=== PATIENT | female | born 1985 | race Caucasian/White ===

== ENCOUNTER 2022-03-24 11:14 | Emergency (ER) | payer OTHER, SELFPAY ==
[2022-03-24 11:24] VITALS: BP 117/83; PULSE 58; RESP 16; TEMP 37.1; O2SAT 100
--- NOTE | 2022-03-24 12:08 | ED.EAR ---
HPI - Ear Problem General Chief complaint: Ear Stated complaint: right ear clogged Time Seen by Provider: 03/24/22 11:17 Source: patient Mode of arrival: ambulatory Limitations: no limitations History of Present Illness HPI Narrative: 36-year-old female presents to urgent care with complaints of right ear discomfort and clogged sensation for the past 2 days. Patient reports that the symptoms started after she went down a large water slide [place]. Patient reports that she has not noticed bloody drainage but did notice clear drainage yesterday but none today. Patient denies decreased hearing but reports that she feels that there is a clogged sensation to her right ear. Patient denies fever, bodies, chills, nausea, vomiting or diarrhea. Patient denies history of frequent ear infections. MD Complaint: ear pain Location: right ear Duration: constant Severity: mild Discharge from ear: Reports yes - clear Treatment prior to arrival: none Related Data Allergies Allergy/AdvReac Type Severity Reaction Status Date / Time codeine Allergy Mild NAUSEA AND Unverified 03/24/22 12:00 VOMITING Review of Systems Constitutional: Constitutional: Denies fatigue, Denies fever(s) and Denies weakness ENT: Denies vertigo Comments: Right ear pain Cardiovascular: Cardiovascular: Denies chest pain Respiratory: Respiratory: Denies cough, Denies dyspnea and Denies wheezing Gastrointestinal: Gastrointestinal: Denies diarrhea, Denies nausea and Denies vomiting Musculoskeletal: Musculoskeletal: Denies joint swelling Integumentary/Breasts: Skin/Breast: Denies rash PMFSH Comments At time of signature, I agree with nursing past medical, surgical, social and family history. There is no relevant family history pertinent to the presenting complaint. Exam Const: General: healthy appearing Nutritional Appearance: well nourished Orientation/consciousness: patient oriented x3 Limitations: no limitations HENMT: Head: normal to inspection Ears: TM abnormal dull on the right and other (Moderate erythema noted to right TM with questionable perforation noted to 6:00 region of right TM ) General nose exam: Normal external nose present Mouth: Yes Normal oral and palatal mucosa present Teeth and gingiva: dentition normal Throat: posterior oropharynx normal and uvula midline Eyes: Conjunctivae: conjunctivae normal Neck: Neck: normal visual inspection Resp: Effort & Inspection: normal respiratory effort and not labored Auscultation: clear to auscultation bilaterally, no crackles, no rales, no rhonchi and no wheezes Cardio: Rate: regular rate Rhythm: regular rhythm Heart sounds: Murmur heart sound present Skin: General skin exam: normal color Rashes: no rashes Wounds: no wounds Neuro: General: patient oriented x3 Cranial nerves: Yes Nystagmus not present Speech: normal speech Gait exam (Neuro): Normal gait present Psych: Mental Status: mental status grossly normal Affect: normal affect Attitude: cooperative Course Course Level of Care: Express Care Visit Vital Signs Vital signs: Vital Signs Temperature 37.1 C 03/24/22 11:24 Pulse Rate 58 L 03/24/22 11:24 Respiratory Rate 16 03/24/22 11:24 Blood Pressure 117/83 03/24/22 11:24 Pulse Oximetry 100 03/24/22 11:24 Temperature 37.1 C 03/24/22 11:24 Pulse Rate 58 L 03/24/22 11:24 Respiratory Rate 16 03/24/22 11:24 Blood Pressure 117/83 03/24/22 11:24 Pulse Oximetry 100 03/24/22 11:24 Medical Decision Making MDM Narrative Medical decision making narrative: Due to questionable perforation, patient understands importance of following up with ENT soon as possible. Patient agrees to call ENT tomorrow for an appointment. ENT -- Dr Arreloa's phone number provided for patient as there is no ENT on-call today. Patient agrees to keep ear clean and dry. Patient agrees to alternate Motrin Tylenol as needed. Differential Diagnosis Differential Diag
== END 2022-03-24 12:15 | disposition home or self-care (01) ==
PROVIDERS: Emergency Provider Nurse Practitioner Family; PCP Physician Assistant
DX: H66.91 Otitis media, unspecified, right ear (principal); Z86.16 Personal history of COVID-19
CPT/HCPCS: 99213; G0463

== ENCOUNTER 2025-07-05 09:40 | Outpatient (CLI) | payer BC, SELFPAY ==
--- NOTE | ~2025-07-05 | MM_ITS ---
EXAMINATION: MM screening ankit BI w herminia HISTORY: Screening TECHNIQUE: Craniocaudal and mediolateral oblique 3-D tomosynthesis images were obtained and synthetic 2-D images were generated. CAD analysis was submitted and interpreted. COMPARISON: Baseline BREAST PARENCHYMAL COMPOSITION: Dense: The breasts are heterogeneously dense, which may obscure small masses. FINDINGS: There is no evidence of suspicious mass, calcification, or architectural distortion to suggest malignancy in either breast. IMPRESSION: 1. No mammographic evidence of malignancy. 2. Recommend routine screening mammography in one year. BI-RADS Category 1: Negative Reviewed, dictated and finalized at location A. NARY ARTIST
--- OUTSIDE RECORDS SUMMARY | 2025-07-05 10:56 | XMS_ITS | Clinical Summary ---
Author Organization [facility] Address [address] [address] Care Team Providers Care Life Teacher Name Role Phone Unavailable Primary Care Provider Unavailabl e Source Comments [facility],non-owned Affiliates and Associated Physician Practices is amultiple site organization consisting of ambulatory clinics and hospital sitesin [place], [place], [place] and [place]. This disclosure is being madepursuant to the Care Everywhere program and may not contain all information available regarding this patient. Last updated 18.[facility] Allergies No known active allergies Medications * Be aware that medications may not be up to date on this document. Alwaysverify current medications with the patient. No known medications Immunizations Immunization Administration Dates Next Due INFLUENZA VACCINE, QUADR. (F LUZONE; FLULAVAL; FLUARIX; AFLURIA QUADRIVALENT; 6MO+), 0.5 ML (IIV4) 05/06/2018 Social History Tobacco Use Types Packs/Day Years Used Date Smoking Tobacco: Never Smokeless Tobacco: Never Comments No Sex and Gender Information Value Date Recorded Sex Assigned at Not on file Legal Sex Female 10:26 AM CDT Gender Identity Not on file Sexual Orientation Not on file Last Filed Vital Signs Vital Sign Reading Time Taken Comments Blood Pressure 110/76 11/24/2017 12:01 PM CDT Pulse 60 11/24/2017 12:01 PM CDT Temperature 36.3 C (97.4 F) 11/24/2017 12:01 PM CDT Respiratory Rate 16 11/24/2017 12:01 PM CDT Oxygen Saturation 99% 11/24/2017 12:01 PM CDT Inhaled Oxygen Concentration - - Weight 64.4 kg (142 lb) 11/24/2017 12:01 PM CDT Height - - Body Mass Index - - Plan of Treatment Health Maintenance Due Date Last Done Comments HIV SCREENING 2000 HEPATITIS C SCREENING 06/29/2003 DTAP/TDAP/TD VACCINES (1 - Tdap) 2004 HEPATITIS B VACCINE (1 of 3 - 19+ 3-dose series) 2004 HPV VACCINE (1 - 3-dose SCDM series) 2012 DEPRESSION SCREENING 07/20/2024 COVID-19 VACCINE (1 - 2024-2 6 season) 2025 INFLUENZA VACCINE (#1) 2025 05/06/2018 ZOSTER VACCINE (1 of 2) 2035 HIB VACCINE Aged Out No longer eligi ble based on patient's age to complete this topic MENINGOCOCCAL (Group B) VACC INE SHARED DECISION-MAKING Aged Out No longer eligibl e based on patient's age to complete this topic MENINGOCOCCAL GROUPS A/C/Y/W VACCINE Aged Out No longer eligible b ased on patient's age to complete this topic PNEUMOCOCCAL VACCINE Aged Out No long er eligible based on patient's age to complete this topic Insurance [id number] [place] [id number] [facility] [place] Address: [facility] [address] [place] [address] Advance Directives Documents on File Type Date Recorded 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
--- OUTSIDE RECORDS SUMMARY | 2025-07-05 10:56 | XMS_ITS | Clinical Summary ---
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 (spontaneous vaginal delivery) 02/17/2017 08/11/14 08/10/2014 Routine general medical exam ination at a health care facility 03/10/2012 Resolved Problems Problem Noted Date Diagnosed Date Resolved Date Normal labor 02/17/2017 02/17/2017 Immunizations Immunization Administration Dates Next Due (ADACEL/BOOSTRIX)(10 YR UP) TDAP VACCINE, 0.5ML, IM 06/02/2014 Influenza Seasonal Unspecified Formulation IM Family History Medical History Relation Name Comments Healthy Father Healthy Mother Relation Name Status Comments Father Mother Social History Tobacco Use Types Packs/Day Years Used Date Smoking Tobacco: Never Smokeless Tobacco: Never Alcohol Use Standard Drinks/Week Comments Yes 0 (1 standard drink = 0.6 oz pur e alcohol) occasionally Comments No Sex and Gender Information Value Date Recorded Sex Assigned at Not on file Legal Sex Female 6:06 AM REHAB ASSISTANT Gender Identity Not on file Sexual Orientation Not on file Occupation Industry Job Start Date Job End Date Not on file Not on file Not on file Not on file Not on file Not on file Not on file Not on file Last Filed Vital Signs Vital Sign Reading Time Taken Comments Blood Pressure 114/78 09/06/2019 12:08 PM REHAB ASSISTANT Pulse 54 04/26/2019 8:28 AM CDT Temperature 36.4 C (97.6 F) 04/26/2019 8:28 AM CDT Respiratory Rate 16 04/26/2019 8:28 AM CDT Oxygen Saturation 100% 04/26/2019 8:28 AM CDT Inhaled Oxygen Concentration - - Weight 69.2 kg (152 lb 9.6 oz) 09/06/2019 12:08 PM REHAB ASSISTANT Height 161.9 cm (5' 3.75) 09/06/2019 12:[address] Body Mass Index 26.4 09/06/2019 12:08 PM REHAB ASSISTANT Plan of Treatment Health Maintenance Due Date Last Done Comments HEPATITIS B VACCINES (1 of 3 - 19+ 3-dose series) 2004 CERVICAL CANCER SCREENING 09/06/2020 PAP SMEAR 09/06/2020 09/06/2019, 09/18, 09/17/2012, Additional history exists HPV/Cotest (21-29) 09/06/2024 09/06/2019, 0 09/17/2012, 09/19/2011 HPV/Cotest (30-65) 09/06/2024 09/06/2019, 0 09/17/2012, 09/19/2011 INFLUENZA VACCINE (#1) 2025 8, 03/31/2017, 04/03/2014 BREAST CANCER SCREENING 2025 DTAP/TDAP/TD VACCINES (4 - T d or Tdap) 12/22/2026 12/22/2016, 06/30/2014, 06/02/2014 HPV VACCINES (No Doses Required) Completed Procedures Procedure Name Priority Date/Time Associated Diagnosis Comments CERV/VAG CYTO AGE BASED SCREEN PAP Routine 09/06/2019 12:31 PM REHAB ASSISTANT Well female exam with routine gynecological exam from Last 3 Months or Most Recently Relevant to Health Maintenance Results * CERV/VAG CYTO AGE BASED SCREEN PAP (09/06/2019 12:31 PM REHAB ASSISTANT) COMMENT (PAP): SEE COMMENT 0 7:07 AM REHAB ASSISTANT [facility] Comment: This order for age-based cervical cancer and STI screening follows ACOG guidelines(PB 168, 140, [id number]). See individual assays for performing site location. CLINICAL INFORMATION Information not provided 09/12/2019 7:07 AM REHAB ASSISTANT [facility] LAST MENSTRUAL PERIOD INFORMATION NOT PROVIDED 09/12/2019 7:07 AM REHAB ASSISTANT [facility] PREV PAP: INFORMATION NOT PROVIDED 09/12/2019 7:07 AM REHAB ASSISTANT [facility] PREV BX: INFORMATION NOT PROVIDED 09/12/2019 7:07 AM REHAB ASSISTANT [facility] SOURCE Endocervix 09/12/2019 7:07 AM REHAB ASSISTANT [facility] ADEQUACY: SEE COMMENT 09/12/2019 7:07 AM REHAB ASSISTANT [facility] Comment: Satisfactory for evaluation. Endocervical/transformation zone component present. Age and/or menstrual status not provided PAP INTERP Negative for intraepithelial lesion or malignancy. 09/12/2019 7:07 AM REHAB ASSISTANT [facility] COMMENT This Pap test has been evaluated with computer assisted technology. 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 [place] [address] EXPLANATORY NOTE SEE COMMENT 020 7:07 AM REHAB ASSISTANT [facility] Comment: EXPLANATORY NOTE: The Pap is a screening test for cervical cancer. It is not a diagnostic test and is subject to false negative and false positive results. It is most reliable when a satisfactory sample, regularly obtained, is submitted with relevant clinical findings and history, and when the Pap result is evaluated along with historic and current clinical information. HPV E6/E7 Not Detected Not Detected 09/12/2019 7:07 AM REHAB ASSISTANT [facility] Comment: This test was performed using the APTIMA HPV Assay ([employer] This assay detects E6/E7 viral messenger RNA (mRNA) from 14 high-risk HPV types (16,18,31,33,35,39,45,51,52,56,58,59,66,68). The analytical performance characteristics of this assay have been determined by [employer]. The modifications have not been cleared or approved by the FDA. This assay has been validated pursuant to the CLIA regulations and is used for clinical purposes. Genital SWAB OF ENDOCERVIX / Unknown Collection / Unknown 09/06/2019 12:31 PM REHAB ASSISTANT 09/06/2019 9:56 PM REHAB ASSISTANT Narrative [facility] - 09/12/2019 7:07 AM REHAB ASSISTANT Performing Organization Information: Site ID: [id number] [facility] Address: [address] [place] [address] Director: Javier Green D.O., MPH Site ID: [place] [facility] Address: [address] [place] [address] Director: Shayna Graham Jacqueline Snyder MD PATHOLOGY/CYTOLOGY ORDERAB LES Final Result [facility] [phone] from Last 3 Months or Most Recently Relevant to Health Maintenance Insurance [address] [place] [address] [facility] BLUE ACCESS CHOICE Advance Directives For more information, please contact: [phone] * Full Code (Latest Code Status on File) Date Activated Date Inactivated Comments 02/17/2017 11:33 PM 02/19/2017 3:07 PM * Full Code Date Activated Date Inactivated Comments 02/17/2017 9:35 AM 02/17/2017 11:33 PM * Full Code Date Activated Date Inactivated Comments 08/11/2014 6:21 PM 08/13/2014 1:10 PM * Full Code Date Activated Date Inactivated Comments 08/10/2014 9:26 AM 08/11/2014 6:21 PM
--- OUTSIDE RECORDS SUMMARY | 2025-07-05 10:56 | XMS_ITS | Data Portability ---
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 Lab lipid panel, serum 025 10/18/19 25 [facility], [address] [place] [address], [address], 5 09:08:42 CMP, serum or plasma 025 10/18/19 25 [facility], [address] [place] [address], [address], 5 09:08:44 CBC w/ auto diff 025 10/18/19 25 [facility], [address] [place] [address] 2, [place], [address], 5 09:08:46 HbA1c (hemoglo bin A1c), blood 025 10/18/19 25 [facility], [address] [place] [address] 2, [place], [address], 09:08:45 Referral None recorded . Procedures None recorded . Surgeries None recorded . Imaging None recorded . Medication Orders None recorded . Patient TargetsNo targets recorded. Patient Instructions Encounter Date Encounter Id Patient Instructions Last Modified By Organization Details Last Modified Time 10/17/2024 [id number] A healthy lifestyle: care instructions Not available 10/17/2024 11:13:06 Reason for Referral None Reported. Results Created Date Observation Date Name Description Value Unit Range Abnormal Flag Note LastModifiedBy Organization Detail LastModifiedTime 10/18/1910/18/2024 LIPID PANEL W/ CHOL/ HDL RATIO cholesterol, total 212 mg/dL 100-19 9 above high normal Not Available [facility] ([facility]) [address] [place], [address], 10/18/2024 09:08:42 10/18/1910/18/2024 LIPID PANEL W/ CHOL/ HDL RATIO triglyceride s 97 mg/dL 0-149 Not Available [facility] ([facility]) [address] [place], [address], 10/18/2024 09:08:42 10/18/19 25 10/18/2024 LIPID PANEL W/ CHOL/ HDL RATIO HDL cholesterol 85 mg/dL >39 Not Available [facility] ([facility]) [address] [place], [address], 10/18/2024 09:08:42 10/18/1910/18/2024 LIPID PANEL W/ CHOL/ HDL RATIO VLDL cholesterol rosanne 17 mg/dL 5-40 Not Available [facility] ([facility]) [address] [place], [address], 10/18/2024 09:08:42 10/18/19 25 10/18/2024 LIPID PANEL W/ CHOL/ HDL RATIO LDL chol calc ([facility]) 110 mg/dL 0-99 above high normal Not Available [facility] ([facility]) [address] [place], [address], 10/18/2024 09:08:42 10/18/19 25 10/18/2024 LIPID PANEL W/ CHOL/ HDL RATIO T. chol/HDL ratio 2.5 ratio 0.0-4. 4 T. Chol/ HDL Ratio Men Women 1/2 Avg.R isk 3.4 3.3 Avg.R isk 5.0 4.4 2X Avg.R isk 9.6 7.1 3X Avg.R isk 23.4 11.0 Not Available [facility] ([facility]) [address] [place], [address], 10/18/2024 09:08:42 10/18/19 25 10/18/2024 COMP. METAB OLIC PANEL (14) glucose 78 mg/dL 70-99 Not Available [facility] ([facility]) [address] [place], [address], 10/18/2024 09:08:43 10/18/19 25 10/18/2024 COMP. METAB OLIC PANEL (14) BUN 14 mg/dL 6-20 Not Available [facility] ([facility]) [address] [place], [address], 10/18/2024 09:08:43 10/18/19 25 10/18/2024 COMP. METAB OLIC PANEL (14) creatinine 0.88 mg/dL 0.57-1 .00 Not Available [facility] ([facility]) [address] [place], [address], 10/18/2024 09:08:43 10/18/19 25 10/18/2024 COMP. METAB OLIC PANEL (14) eGFR 86 mL/mi n/1.7 3 >59 Not Available [facility] ([facility]) [address] [place], [address], 10/18/2024 09:08:43 10/18/19 25 10/18/2024 COMP. METAB OLIC PANEL (14) BUN/creatini ne ratio 16 9-23 Not Available [facility] ([facility]) [address] [facility] [place], [address], 10/18/2024 09:08:43 10/18/19 25 10/18/2024 COMP. METAB OLIC PANEL (14) sodium 139 mmol/ L 134-14 4 Not Available [facility] ([facility]) [address] [facility] [place], [address], 10/18/2024 09:08:43 10/18/19 25 10/18/2024 COMP. METAB OLIC PANEL (14) potassium 5.1 mmol/ L 3.5-5. 2 Not Available [facility] ([facility]) [address] [facility] [place], [address], 10/18/2024 09:08:43 10/18/19 25 10/18/2024 COMP. METAB OLIC PANEL (14) chloride 103 mmol/ L 96-106 Not Available [facility] ([facility]) [address] [facility] [place], [address], 10/18/2024 09:08:43 10/18/19 25 10/18/2024 COMP. METAB OLIC PANEL (14) carbon dioxide, total 23 mmol/ L 20-29 Not Available [facility] ([facility]) [address] [facility] [place], [address], 10/18/2024 09:08:43 10/18/19 25 10/18/2024 COMP. METAB OLIC PANEL (14) calcium 9.5 mg/dL 8.7-10 .2 Not Available [facility] ([facility]) [address] [facility] [place], [address], 10/18/2024 09:08:43 10/18/19 25 10/18/2024 COMP. METAB OLIC PANEL (14) protein, total 6.7 g/dL 6.0-8. 5 Not Available [facility] ([facility]) [address] [facility] [place], [address], 10/18/2024 09:08:43 10/18/19 25 10/18/2024 COMP. METAB OLIC PANEL (14) albumin 4.6 g/dL 3.9-4. 9 Not Available [facility] ([facility]) [address] [facility] [place], [address], 10/18/2024 09:08:43 10/18/19 25 10/18/2024 COMP. METAB OLIC PANEL (14) globulin, total 2.1 g/dL 1.5-4. 5 Not Available [facility] ([facility]) [address] [facility] [place], [address], 10/18/2024 09:08:43 10/18/19 25 10/18/2024 COMP. METAB OLIC PANEL (14) bilirubin, total 1.0 mg/dL 0.0-1. 2 Not Available [facility] ([facility]) [address] [facility] [place], [address], 10/18/2024 09:08:43 10/18/19 25 10/18/2024 COMP. METAB OLIC PANEL (14) alkaline phosphatase 33 IU/L 44-121 below low normal Not Available [facility] ([facility]) [address] [facility] [place], [address], 10/18/2024 09:08:43 10/18/19 25 10/18/2024 COMP. METAB OLIC PANEL (14) AST (SGOT) 20 IU/L 0-40 Not Available [facility] ([facility]) [address] [facility] [place], [address], 10/18/2024 09:08:43 10/18/19 25 10/18/2024 COMP. METAB OLIC PANEL (14) ALT (SGPT) 16 IU/L 0-32 Not Available [facility] ([facility]) [address] [place], [address], 10/18/2024 09:08:43 10/18/19 25 10/18/2024 HEMOG LOBIN A1C hemoglobin A1C 5.2 % 4.8-5. 6 Predi abete s: 5.7 - 6.4 Diabe elias: >6.4 Glyce edinson contr ol for adult s with diabe elias: <7.0 Not Available [facility] ([facility]) [address] [facility], [place], [address], 10/18/2024 09:08:45 10/18/19 25 10/18/2024 CBC WITH DIFFE RENTI AL/PL ATELE T WBC 6.0 x10e3 /uL 3.4-10 .8 Not Available [facility] ([facility]) [address] [facility], [place], [address], 10/18/2024 09:08:46 10/18/19 25 10/18/2024 CBC WITH DIFFE RENTI AL/PL ATELE T RBC 4.44 x10e6 /uL 3.77-5 .28 Not Available [facility] ([facility]) [address] [facility], [place], [address], 10/18/2024 09:08:46 10/18/19 25 10/18/2024 CBC WITH DIFFE RENTI AL/PL ATELE T hemoglobin 13.1 g/dL 11.1-1 5.9 Not Available [facility] ([facility]) [address] [place], [address], 10/18/2024 09:08:46 10/18/19 25 10/18/2024 CBC WITH DIFFE RENTI AL/PL ATELE T hematocrit 41.8 % 34.0-4 6.6 Not Available [facility] ([facility]) [address] [place], [address], 10/18/2024 09:08:46 10/18/19 25 10/18/2024 CBC WITH DIFFE RENTI AL/PL ATELE T MCV 94 fL 79-97 Not Available [facility] ([facility]) [address] [facility], [place], [address], 10/18/2024 09:08:46 10/18/19 25 10/18/2024 CBC WITH DIFFE RENTI AL/PL ATELE T MCH 29.5 pg 26.6-3 3.0 Not Available [facility] ([facility]) [address] [facility], [place], [address], 10/18/2024 09:08:46 10/18/19 25 10/18/2024 CBC WITH DIFFE RENTI AL/PL ATELE T MCHC 31.3 g/dL 31.5-3 5.7 below low normal Not Available [facility] ([facility]) [address] [facility], [place], [address], 10/18/2024 09:08:46 10/18/19 25 10/18/2024 CBC WITH DIFFE RENTI AL/PL ATELE T RDW 13.4 % 11.7-1 5.4 Not Available [facility] ([facility]) [address] [facility], [place], [address], 10/18/2024 09:08:46 10/18/19 25 10/18/2024 CBC WITH DIFFE RENTI AL/PL ATELE T platelets 242 x10e3 /uL 150-45 0 Not Available [facility] ([facility]) [address] [facility], [place], [address], 10/18/2024 09:08:46 10/18/19 25 10/18/2024 CBC WITH DIFFE RENTI AL/PL ATELE T neutrophils 56 % notest ab. Not Available [facility] ([facility]) [address] [facility], [place], [address], 10/18/2024 09:08:46 10/18/19 25 10/18/2024 CBC WITH DIFFE RENTI AL/PL ATELE T lymphs 34 % notest ab. Not Available [facility] ([facility]) [address] [facility], [place], [address], 10/18/2024 09:08:46 10/18/19 25 10/18/2024 CBC WITH DIFFE RENTI AL/PL ATELE T monocytes 7 % notest ab. Not Available [facility] ([facility]) [address] [facility], [place], [address], 10/18/2024 09:08:46 10/18/19 25 10/18/2024 CBC WITH DIFFE RENTI AL/PL ATELE T eos 2 % notest ab. Not Available [facility] ([facility]) [address] [facility], [place], [address], 10/18/2024 09:08:46 10/18/19 25 10/18/2024 CBC WITH DIFFE RENTI AL/PL ATELE T basos 1 % notest ab. Not Available [facility] ([facility]) [address] [facility], [place], [address], 10/18/2024 09:08:46 10/18/19 25 10/18/2024 CBC WITH DIFFE RENTI AL/PL ATELE T neutrophils (absolute) 3.4 x10e3 /uL 1.4-7. 0 Not Available [facility] ([facility]) [address] [facility], [place], [address], 10/18/2024 09:08:46 10/18/19 25 10/18/2024 CBC WITH DIFFE RENTI AL/PL ATELE T lymphs (absolute) 2.0 x10e3 /uL 0.7-3. 1 Not Available [facility] ([facility]) [address] [place], [address], 10/18/2024 09:08:46 10/18/19 25 10/18/2024 CBC WITH DIFFE RENTI AL/PL ATELE T monocytes(ab solute) 0.4 x10e3 /uL 0.1-0. 9 Not Available [facility] ([facility]) [address] [facility], [place], [address], 10/18/2024 09:08:46 10/18/19 25 10/18/2024 CBC WITH DIFFE RENTI AL/PL ATELE T eos (absolute) 0.1 x10e3 /uL 0.0-0. 4 Not Available [facility] ([facility]) [address] [facility], [place], [address], 10/18/2024 09:08:46 10/18/19 25 10/18/2024 CBC WITH DIFFE RENTI AL/PL ATELE T baso (absolute) 0.0 x10e3 /uL 0.0-0. 2 Not Available [facility] ([facility]) [address] [facility], [place], [address], 10/18/2024 09:08:46 10/18/19 25 10/18/2024 CBC WITH DIFFE RENTI AL/PL ATELE T immature granulocytes 0 % notest ab. Not Available [facility] ([facility]) [address] [facility], [place], [address], 10/18/2024 09:08:46 10/18/19 25 10/18/2024 CBC WITH DIFFE RENTI AL/PL ATELE T immature grans (abs) 0.0 x10e3 /uL 0.0-0. 1 Not Available [facility] ([facility]) [address] [place], [address], 10/18/2024 09:08:46 11/25/19 25 11/24/2024 pap, IG + HR HPV Pap, HPV negati ve Not Available Not Available 11:51:38 Result Notes None recorded. Problems Name Problem SNOMED Code Status Onset Date Resolution Date Notes Provider Name and Address Organization Details Recorded Time Body mass index 25-29 - overweight 230650728 Active 025 Karen Flores MA null, [place] - [facility] 10:51:53 Overweight 363018671 Active 025 CLARITZA Kincaid Attn: Accountin g,[address] [facility], [place], [address], [facility] 12:38:03 Problem Notes None recorded. Procedures Surgical History Date Name Laterality Status Provider Name and Address Organization Details Recorded Time Knee Surgery completed Karen Flores MA [facility] 10/17/2024 11:09:09 Tonsillectomy completed Karen Flores MA [facility] 10/17/2024 11:09:17 Imaging Results None recorded. Procedure Notes None recorded. Medical Equipment None Reported. Allergies Allergen ID Allergen Name Allergen Category Reaction Reaction Severity Criticality Documentation Date Start Date Code Code System Note Provider Name and Address Organization Details Recorded Time cucumber extract food Not available Not available Not available 10/17/2024 81903 19 RxNorm BEBO Feliciano, [facility] 10:51:27 634285 codeine medicatio n Not available Not available Not available 10/17/2024 2670 RxNorm BEBO Feliciano, [facility] 10:51:31 Medications Not known to be on any medication Vitals Date Recorded Systolic And Diastolic Provider Name and Address Organization Details Last Updated DateTime 10/17/2024 130/80 mm[Hg] CLARITZA Kincaid Attn: Accounting,[address] [facility], [place], [address], [facility] 10/17/2024 11:18:02 Date Recorded Body weight Body mass index (BMI) Body height Respiratory rate Oxygen saturation Heart rate Systolic And Diastolic Provider Name and Address Organization Details Last Updated DateTime 65613 g 26.9 kg/m2 162.56 cm 18 /min 100 % 54 /min 118/82 mm[Hg] Karen Flores MA [facility] 10:55:14 Social History Question Answer Notes LastModified by Organizat ion Details LastModified Time Tobacco Smoking Status Never Smoker BEBO Feliciano, [facility] 10/17/2024 11:09:51 Do You Have An Advance Directive? No Information n ot available 10/17/2024 Are You Blind Or Do You Have Difficulty Seeing? No Information n ot available 10/17/2024 What Is Your Level Of Caffeine Consumption? Moderate Information not available 10/17/2024 In The 14 Days Before Symptom Onset, Have You Had Close Contact With A Laboratory-confirm ed COVID-19 While That Case Was Ill? No Information n ot available 10/17/2024 In The 14 Days Before Symptom Onset, Have You Had Close Contact With A Person Who Is Under Investigation For COVID-19 While That Person Was Ill? No Information not available 10/17/2024 Have You Been To An Area Known To Be High Risk For COVID-19? No Information not available 10/17/2024 Are You Deaf Or Do You Have Serious Difficulty Hearing? No Information not available 10/17/2024 What Type Of Diet Are You Following? REGULAR Information n ot available 10/17/2024 What Was The Date Of Your Most Recent Tobacco Screening? 10/17/2024 Information not available 10/17/2024 Do You Use Your Seat Belt Or Car Seat Routinely? Yes Information not available 10/17/2024 Do You Have Smoke And Carbon Monoxide Detectors In Your Home? Yes Information not available 10/17/2024 Do You Use Sunscreen Routinely? Yes Information not available 10/17/2024 Has Tobacco Cessation Counseling Been Provided? No Information not available 10/17/2024 Sex: Female Functional Status Question Answer Note LastModified by Organizat ion Details LastModified Time Do you or have you ever used any other forms of tobacco or nicotine? No Information not available 10/17/2024 What is your level of alcohol consumption? Occasional Information not available 10/17/2024 Are you currently employed? Yes Information not available 10/17/2024 Are you able to care for yourself independently? Yes Information not available 10/17/2024 What is your exercise level? Moderate Information not available 10/17/2024 Mental Status None recorded. Family History Nothing Reported. Medical History Condition Response Coronary Artery Disease N Other N Atrial Fibrillation N High Blood Pressure N Kidney or Bladder Problems N Thyroid Problems N GI Problems N Depression N COPD N Blood Clots N Have you had a mammogram in the last yea r? N Skin Problems N Anemia N Heart Attack ([place]) N Anxiety Disorder N Diabetes N Muscle, Joint, or Bone Problems N Seizures/Epilepsy N Have you had a colonoscopy in the last 1 0 years? N Acid Reflux (GERD) N Cancer N Stroke N Asthma N Allergies N Have you had a PSA blood test in the las t year? N High Cholesterol N Hepatitis N Liver Disease N Headaches N Heart Failure N Osteoporosis N Gynecological History Statement/Question Response Flow Moderate Date of LMP 08/31/2024 Menses Monthly Y Duration of Flow (days) 4 Current Control Method None LMP Approximate Obstetrics History GPAL:G 2 P 2 0 0 2 Type Value Multiple Births 0 Full Term 2 Induced 0 Premature 0 Living 2 Total 2 Immunizations Vaccine Type Date Status Note Provider Nam e and Address Organization Details Recorded Time COVID-19, mRNA, LNP-S, PF, 30 mcg/0.3 mL dose 10/23/2020 completed BEBO Feliciano, [place] - [facility] 10/17/2024 10:48:00 COVID-19, mRNA, LNP-S, PF, 30 mcg/0.3 mL dose 11/14/2020 completed BEBO Feliciano, [place] [facility] 10/17/2024 10:48:00 COVID-19, mRNA, LNP-S, PF, 30 mcg/0.3 mL dose 06/12/2021 completed Karen Flores [place] null, [place] - [facility] 10/17/2024 10:48:00 Tdap 01/04/2024 completed BEBO Feliciano, [place] - [facility] 10/17/2024 10:48:00 Past Encounters Encounter ID Performer Location Encounter Start Date Encounter Closed Date Diagnosis/Indication Diagnosis SNOMED-CT Code Diagnosis ICD10 Code Diagnosis IMO Codes Diagnosis Note [id number] Juaquin Farfan MD [facility] [place] [address] [place] [address] 10/17/2024 10:31:14 10/17/2024 12:35:30 Adult health examination 574705897 Z00.00 Annual wellness exam completed with fasting labs ordered Body mass index 25-29 - overweight 176132372 Z68.26 BMI is 26.9 Overweight 544953317 E66 .3 Patient eats healthy and exercises routinely there is no concern with her BMI currently Cholesterol screening 27 6535289 Z13.220 Diabetes m ellitus screening 897156154 Z13.1 Health Concerns Section Related Observation LastModified by Organization Detai ls LastModified Time None Recorded Concern Status LastModified by Organization Details LastModified Time None Recorded Advance Directives Directive N: Payers Insurance Date Sequence Insurance Name Policy Number Policy Ross Covered Member ID Ross Member ID Guarantor Name 10/20/2024 1 [facility] ([facility]) [id number] Payam Ladd [id number] Gabrielle Ladd Notes Date Note Type Note Provider Name and Address Organization Details Recorded Time 10/17/2024 text/html Patient here to re-establish care with PCP and have her annual wellness exam. CLARITZA Kincaid Attn: Accounting,[address] [facility], [place], [address], [place] [facility] 10/17/2024 12:38:44 OBGyn Episode No OBEpisode recorded.
--- OUTSIDE RECORDS SUMMARY | 2025-07-05 10:56 | XMS_ITS ---
Author Organization Unknown ENCOUNTERS Encounter Performer Location Date Diagnosis Diagnosis Status Outpatient [address] [address] [id number] *Note: Encounters from your own facility or health system may be excluded. Allergies, Adverse Reactions, Alerts Allergen Type Severity Identification Date codeine drug allergy 2 [id number] Medications Name Date Quantity Days Supplied GPI Number
== END 2025-07-05 09:41 | disposition home or self-care (01) ==
LOC: CHSIMG 09:42
PROVIDERS: PCP Physician Assistant; Visit Provider Nurse Practitioner Family
DX: Z12.31 Encounter for screening mammogram for malignant neoplasm of breast (principal)
CPT/HCPCS: 77063; 77067